=== PATIENT | female | born 1945 | race Two or more races ===

== ENCOUNTER → 2023-11-19 | Outpatient (CLI) | payer MEDICAID ==
[2023-11-19 11:44] LABS: Basophils # (auto) 0 10 ^3/uL (0-0.2); Basophils % (auto) 0.6 % (0.0-2.0); Eosinophils # (auto) 0.1 10 ^3/uL (0-0.8); Eosinophils % (auto) 1.4 % (0.0-7.0); Hemoglobin 11.9 g/dL (12.2-16.2); Lymphocytes # (auto) 2.4 10 ^3/uL (0.4-5.4); Lymphocytes % (auto) 31.6 % (10.0-50.0); Mean Corpuscular Hemoglobin 28.5 pg (28.0-32.0); Mean Corpuscular Hgb Conc. 33.1 g/dL (32.0-36.0); Mean Corpuscular Volume 86.2 fL (80.0-100.0); Monocytes # (auto) 0.4 10 ^3/uL (0-1.3); Monocytes % (auto) 5.8 % (0.0-12.0); Neutrophils # (auto) 4.6 10 ^3/uL (1.6-8.6); Neutrophils % (auto) 60.6 % (37.0-80.0); Red Blood Cells 4.17 10^6/uL (4.0-5.20); Red Cell Distribution Width 14.4 % (11.8-14.3); White Blood Cell 7.6 10^3/uL (4.4-10.8)
[2023-11-19 11:46] LABS: Urine Blood 1+ /uL (Negative); Urine Clarity Turbid (Clear); Urine Protein, UAD TRACE (Negative); Urine Specific Gravity 1.012 (1.001-1.035); Urine Urobilinogen Normal (Negative); Urine pH 5.5 (5.0-9.0)
[2023-11-19 11:51] LABS: Urine Color Straw (Yellow)
[2023-11-19 11:54] LABS: Alanine Aminotransferase 18 U/L (7-40); Albumin 4.6 g/dL (3.2-4.8); Alkaline Phosphatase 121 U/L (46-116); Anion Gap 4 (5-15); Aspartate Aminotransferase 11 U/L (13-40); BUN/Creatinine Ratio 17.3 (10.0-20.0); Blood Urea Nitrogen 22 mg/dL (9-23); Calcium 10.2 mg/dL (8.5-10.1); Carbon Dioxide 25 mmol/L (20-30); Chloride 111 mmol/L (98-107); Cholesterol 122 mg/dL (< 200); Glucose 107 mg/dL (74-106); HDL Cholesterol 47 mg/dL (40-59); LDL Cholesterol 56 mg/dL (< 100); Potassium 4.8 mmol/L (3.5-5.1); Sodium 140 mmol/L (136-145); Triglycerides 121 mg/dL (< 150)
[2023-11-19 11:55] LABS: Bilirubin, Total 0.4 mg/dL (0.2-1.0); Total Protein 7.6 g/dL (5.7-8.2)
[2023-11-19 11:57] LABS: Creatinine, Urine 55.26 mg/dL (30.0-125.0)
== END | disposition home or self-care (01) ==
LOC: LAB 10:44
PROVIDERS: ATTEND Student in an Organized Health Care Education/Training Program
DX: I10 Essential (primary) hypertension (principal); E11.9 Type 2 diabetes mellitus without complications; E55.9 Vitamin D deficiency, unspecified
CPT/HCPCS: 36415; 80053; 80061; 81003; 82043; 82306; 82570; 83036; 84443; 85025

== ENCOUNTER → 2023-11-25 | Outpatient (CLI) | payer MEDICAID ==
[2023-11-25 11:10] LABS: Alanine Aminotransferase 21 U/L (7-40); Alkaline Phosphatase 113 U/L (46-116); Anion Gap 8 (5-15); BUN/Creatinine Ratio 17.6 (10.0-20.0); Blood Urea Nitrogen 22 mg/dL (9-23); Calcium 9.8 mg/dL (8.5-10.1); Carbon Dioxide 23 mmol/L (20-30); Chloride 110 mmol/L (98-107); Glucose 108 mg/dL (74-106); Sodium 141 mmol/L (136-145)
[2023-11-25 11:11] LABS: Albumin 4.7 g/dL (3.2-4.8); Aspartate Aminotransferase 12 U/L (13-40); Bilirubin, Total 0.5 mg/dL (0.2-1.0); Total Protein 7.7 g/dL (5.7-8.2)
== END | disposition home or self-care (01) ==
LOC: LAB 09:50
PROVIDERS: ATTEND Internal Medicine
DX: I10 Essential (primary) hypertension (principal); I48.0 Paroxysmal atrial fibrillation
CPT/HCPCS: 36415; 80053

== ENCOUNTER → 2024-05-19 | Outpatient (CLI) | payer MEDICAID ==
[2024-05-19 09:52] LABS: Basophils # (auto) 0.1 10 ^3/uL (0-0.2); Basophils % (auto) 0.7 % (0.0-2.0); Eosinophils # (auto) 0.1 10 ^3/uL (0-0.8); Eosinophils % (auto) 1.6 % (0.0-7.0); Hematocrit 36.5 % (36.0-46.0); Hemoglobin 12.1 g/dL (12.2-16.2); Lymphocytes # (auto) 2.5 10 ^3/uL (0.4-5.4); Lymphocytes % (auto) 28.4 % (10.0-50.0); Mean Corpuscular Hemoglobin 29.4 pg (28.0-32.0); Mean Corpuscular Hgb Conc. 33.3 g/dL (32.0-36.0); Mean Corpuscular Volume 88.3 fL (80.0-100.0); Monocytes # (auto) 0.5 10 ^3/uL (0-1.3); Monocytes % (auto) 5.8 % (0.0-12.0); Neutrophils # (auto) 5.5 10 ^3/uL (1.6-8.6); Neutrophils % (auto) 63.5 % (37.0-80.0); Platelet Count (auto) 254 10^3/uL (140-450); Red Blood Cells 4.13 10^6/uL (4.0-5.20); Red Cell Distribution Width 13.7 % (11.8-14.3); White Blood Cell 8.6 10^3/uL (4.4-10.8)
[2024-05-19 10:08] LABS: Alanine Aminotransferase 19 U/L (7-40); Albumin 4.2 g/dL (3.2-4.8); Anion Gap 9 (5-15); BUN/Creatinine Ratio 19.9 (10.0-20.0); Carbon Dioxide 23 mmol/L (20-31); Magnesium 1.8 mg/dL (1.6-2.6); Sodium 142 mmol/L (136-145)
[2024-05-19 10:09] LABS: Bilirubin, Total 0.4 mg/dL (0.2-1.0); Total Protein 7.2 g/dL (5.7-8.2)
[2024-05-19 10:21] LABS: Alkaline Phosphatase 121 U/L (46-116); Aspartate Aminotransferase 11 U/L (13-40); Blood Urea Nitrogen 36 mg/dL (9-23); Chloride 110 mmol/L (98-107); Glucose 175 mg/dL (74-106); Potassium 5.4 mmol/L (3.5-5.1)
[2024-05-19 10:22] LABS: Creatinine, Urine 96.66 mg/dL (30.0-125.0); Urine Protein/Creatinine Ratio 0.27
== END | disposition home or self-care (01) ==
LOC: LAB 09:23
PROVIDERS: ATTEND Internal Medicine Nephrology
DX: E11.22 Type 2 diabetes mellitus with diabetic chronic kidney disease (principal); N18.30 Chronic kidney disease, stage 3 unspecified; E11.21 Type 2 diabetes mellitus with diabetic nephropathy; N39.0 Urinary tract infection, site not specified; R80.9 Proteinuria, unspecified; E21.3 Hyperparathyroidism, unspecified; M10.9 Gout, unspecified; E55.9 Vitamin D deficiency, unspecified
CPT/HCPCS: 36415; 80053; 82570; 83735; 83970; 84156; 85025

== ENCOUNTER → 2024-06-25 | Outpatient (CLI) | payer MEDICAID ==
[~2024-06-25] VITALS: Ht 160 cm; Wt 72.6 kg
[2024-06-25] MEDS: REGADENOSON 0.4 MG/5 ML SYRG IV ONE ×2 (09:21→09:27)
--- NOTE | 2024-06-25 11:40 | DVHSR ---
APPROVED REPORT Exam: Nuclear Stress Test BMI: 0 Stress Test Details HR Max Heart Rate (APMHR): 141.567758 bpm Target HR (85% APMHR): 119.666037 bpm BP ECG Stress ECG Conclusion Review of the myocardial perfusion images during stress demonstrated homogeneous radiotracer uptake t hroughout the left ventricular myocardium. Left ventricular volumes are normal. Left ventricular sy stolic function is normal and is estimated at 64%. There is no significant transient ischemic dilata tion. No gated images are available to assess for wall motion. Impressions 1. Low risk myocardial perfusion scan with no evidence of ischemia or prior infarction. 2. Normal left ventricular systolic function. NM EXAM: Myocardial Perfusion REST/STRESS Imaging Protocol: Rest Tc-99m/Stress Tc-99m 1 day Resting Data Rest SPECT myocardial perfusion imaging was performed in supine position 60 minutes following the int ravenous injection of 14.3 mCi of Tc-99m Sestamibi. Time of rest injection: 0747 Time of rest imagin Administration Route: IV Administration Site: Right AC Pharmacologic Stress Pharmacologic stress test was performed by injecting Regadenoson 0.4 mg IV push followed by the intra venous injection of 31.8 mCi of Tc-99m Sestamibi. Time of stress injection: 0922 Time of stress imagin Administration Route: IV Administration Site: Right AC Gated Stress SPECT was performed 60 minutes after stress injection. The images were gated to evaluate regional wall motion and calculate left ventricular ejection fracti on. Stress only was performed in the Supine position. Nuclear Conclusion ECG Findings: equivocal Clinical Findings: negative for ischemia Nuclear Findings: negative for ischemia Exercise Capacity: not assessed Left Ventricular Function: normal Risk Study: low Review of the myocardial perfusion images during stress demonstrated homogeneous radiotracer uptake t hroughout the left ventricular myocardium. Left ventricular volumes are normal. Left ventricular sy stolic function is normal and is estimated at 64%. There is no significant transient ischemic dilata tion. No gated images are available to assess for wall motion. Impressions 1. Low risk myocardial perfusion scan with no evidence of ischemia or prior infarction. 2. Normal left ventricular systolic function.
== END | disposition home or self-care (01) ==
LOC: XYW 07:26
PROVIDERS: ATTEND Internal Medicine
DX: R00.2 Palpitations (principal); I25.10 Atherosclerotic heart disease of native coronary artery without angina pectoris; R06.02 Shortness of breath; I48.19 Other persistent atrial fibrillation; I10 Essential (primary) hypertension; Z95.0 Presence of cardiac pacemaker; Z79.899 Other long term (current) drug therapy
CPT/HCPCS: 78452; 93017; A9500; J2785

== ENCOUNTER → 2024-07-20 | Outpatient (CLI) | payer MEDICAID ==
[2024-07-20 10:52] LABS: Basophils # (auto) 0 10 ^3/uL (0-0.2); Basophils % (auto) 0.5 % (0.0-2.0); Eosinophils # (auto) 0.1 10 ^3/uL (0-0.8); Eosinophils % (auto) 1.1 % (0.0-7.0); Hematocrit 38.7 % (36.0-46.0); Hemoglobin 12.5 g/dL (12.2-16.2); Lymphocytes # (auto) 2.2 10 ^3/uL (0.4-5.4); Mean Corpuscular Hemoglobin 28.5 pg (28.0-32.0); Mean Corpuscular Hgb Conc. 32.2 g/dL (32.0-36.0); Mean Corpuscular Volume 88.4 fL (80.0-100.0); Monocytes # (auto) 0.5 10 ^3/uL (0-1.3); Neutrophils # (auto) 5.4 10 ^3/uL (1.6-8.6); Neutrophils % (auto) 65.4 % (37.0-80.0); Nucleated Red Blood Cells % 0.3 %; Platelet Count (auto) 250 10^3/uL (140-450); Red Blood Cells 4.37 10^6/uL (4.0-5.20); Red Cell Distribution Width 15.2 % (11.8-14.3); White Blood Cell 8.3 10^3/uL (4.4-10.8)
[2024-07-20 12:34] LABS: Alanine Aminotransferase 27 U/L (7-40); Alkaline Phosphatase 103 U/L (46-116); Anion Gap 11 (5-15); BUN/Creatinine Ratio 19.2 (10.0-20.0); Carbon Dioxide 21 mmol/L (20-31); Magnesium 2.1 mg/dL (1.6-2.6); Sodium 142 mmol/L (136-145); Uric Acid 6.8 mg/dL (3.1-7.8)
[2024-07-20 12:36] LABS: Aspartate Aminotransferase 17 U/L (13-40); Bilirubin, Total 0.5 mg/dL (0.2-1.0); Phosphorus 4.3 mg/dL (2.4-5.1); Total Protein 7.5 g/dL (5.7-8.2)
[2024-07-20 15:18] LABS: Albumin 4.8 g/dL (3.2-4.8); Blood Urea Nitrogen 38 mg/dL (9-23); Calcium 10.5 mg/dL (8.7-10.4); Chloride 110 mmol/L (98-107); Glucose 137 mg/dL (74-106)
[2024-07-20 15:47] LABS: Potassium 5.7 mmol/L (3.5-5.1)
[2024-07-21 15:32] LABS: HDL Cholesterol 53 mg/dL (40-59)
[2024-07-21 15:38] LABS: Cholesterol 134 mg/dL (< 200); LDL Cholesterol 61 mg/dL (< 100); Triglycerides 135 mg/dL (< 150)
== END | disposition home or self-care (01) ==
LOC: LAB 09:06
PROVIDERS: ATTEND Student in an Organized Health Care Education/Training Program
DX: I12.9 Hypertensive chronic kidney disease with stage 1 through stage 4 chronic kidney disease, or unspecified chronic kidney disease (principal); E11.22 Type 2 diabetes mellitus with diabetic chronic kidney disease; N18.30 Chronic kidney disease, stage 3 unspecified; E11.21 Type 2 diabetes mellitus with diabetic nephropathy; N39.0 Urinary tract infection, site not specified; R80.9 Proteinuria, unspecified; E21.3 Hyperparathyroidism, unspecified; M10.9 Gout, unspecified; E55.9 Vitamin D deficiency, unspecified; D63.1 Anemia in chronic kidney disease
CPT/HCPCS: 36415; 80053; 80061; 83036; 83735; 83970; 84100; 84443; 84550; 85025

== ENCOUNTER 2024-11-02 11:02 | Outpatient (CLI) | payer MEDICAID ==
[2024-11-02 11:39] LABS: Basophils # (auto) 0 10 ^3/uL (0-0.2); Basophils % (auto) 0.6 % (0.0-2.0); Eosinophils # (auto) 0.1 10 ^3/uL (0-0.8); Hematocrit 35.3 % (36.0-46.0); Hemoglobin 11.8 g/dL (12.2-16.2); Lymphocytes % (auto) 26.4 % (10.0-50.0); Mean Corpuscular Hemoglobin 29.7 pg (28.0-32.0); Mean Corpuscular Hgb Conc. 33.3 g/dL (32.0-36.0); Mean Corpuscular Volume 89.1 fL (80.0-100.0); Monocytes # (auto) 0.5 10 ^3/uL (0-1.3); Monocytes % (auto) 6.2 % (0.0-12.0); Neutrophils # (auto) 4.9 10 ^3/uL (1.6-8.6); Neutrophils % (auto) 65.8 % (37.0-80.0); Platelet Count (auto) 249 10^3/uL (140-450); Red Blood Cells 3.96 10^6/uL (4.0-5.20); Red Cell Distribution Width 14.6 % (11.8-14.3); White Blood Cell 7.4 10^3/uL (4.4-10.8)
[2024-11-02 11:45] LABS: Urine Bacteria FEW /hpf (None Seen); Urine Blood Negative /uL (Negative); Urine Clarity Turbid (Clear); Urine Color Yellow (Yellow); Urine Hyaline Cast FEW /lpf (0 - 2); Urine Protein, UAD TRACE (Negative); Urine Specific Gravity 1.019 (1.001-1.035); Urine Squamous Epithelial Cell MOD /hpf (<5); Urine Urobilinogen Normal (Negative); Urine WBC 8 /HPF (0-5); Urine pH 5.5 (5.0-9.0)
[2024-11-02 11:56] LABS: Calcium 9.6 mg/dL (8.7-10.4)
[2024-11-02 12:00] LABS: Protein, Urine 25.3 mg/dL (1-14); Uric Acid 8.3 mg/dL (3.1-7.8)
[2024-11-02 12:01] LABS: BUN/Creatinine Ratio 16.8 (10.0-20.0)
[2024-11-02 12:02] LABS: Creatinine, Urine 205.86 mg/dL (30.0-125.0); Urine Protein/Creatinine Ratio 0.12
[2024-11-02 12:03] LABS: Albumin 4.7 g/dL (3.2-4.8); Phosphorus 3.8 mg/dL (2.4-5.1)
[2024-11-02 12:20] LABS: Potassium 5.9 mmol/L (3.5-5.1)
== END 2024-11-02 17:00 | disposition home or self-care (01) ==
LOC: LAB 11:02
PROVIDERS: ATTEND Internal Medicine
DX: E11.22 Type 2 diabetes mellitus with diabetic chronic kidney disease (principal); E11.21 Type 2 diabetes mellitus with diabetic nephropathy; N18.30 Chronic kidney disease, stage 3 unspecified; D63.1 Anemia in chronic kidney disease; N39.0 Urinary tract infection, site not specified; R80.9 Proteinuria, unspecified; E21.3 Hyperparathyroidism, unspecified; M10.9 Gout, unspecified; E55.9 Vitamin D deficiency, unspecified
CPT/HCPCS: 36415; 80069; 81001; 82043; 82570; 83970; 84156; 84550; 85025

== ENCOUNTER 2024-12-15 08:12 | Outpatient (CLI) | payer MEDICAID ==
[2024-12-15 08:29] LABS: Hematocrit 37.5 % (36.0-46.0); Hemoglobin 12.3 g/dL (12.2-16.2); Mean Corpuscular Hemoglobin 29.0 pg (28.0-32.0); Mean Corpuscular Volume 88.6 fL (80.0-100.0); Nucleated Red Blood Cells % 0.1 %
[2024-12-15 08:39] LABS: Urine Protein, UAD Negative (Negative)
[2024-12-15 08:59] LABS: Alanine Aminotransferase 31 U/L (7-40); Alkaline Phosphatase 101 U/L (46-116); Anion Gap 10 (5-15); Carbon Dioxide 26 mmol/L (20-31); Potassium 5.0 mmol/L (3.5-5.1); Sodium 144 mmol/L (136-145)
[2024-12-15 09:00] LABS: BUN/Creatinine Ratio 17.7 (10.0-20.0); Glucose 92 mg/dL (74-106); Total Protein 7.8 g/dL (5.7-8.2)
[2024-12-15 09:02] LABS: Bilirubin, Total 0.4 mg/dL (0.2-1.0)
[2024-12-15 09:03] LABS: Albumin 4.8 g/dL (3.2-4.8); Blood Urea Nitrogen 51 mg/dL (9-23); Calcium 10.6 mg/dL (8.7-10.4); Chloride 108 mmol/L (98-107)
[2024-12-15 09:13] LABS: Microalb/Creat Ratio, Urine 17.0
== END 2024-12-15 17:00 | disposition home or self-care (01) ==
LOC: LAB 08:12
PROVIDERS: ATTEND Student in an Organized Health Care Education/Training Program
DX: I10 Essential (primary) hypertension (principal); E11.9 Type 2 diabetes mellitus without complications; R79.89 Other specified abnormal findings of blood chemistry
CPT/HCPCS: 36415; 80053; 81001; 82043; 82570; 83036; 84439; 84443; 85025

== ENCOUNTER 2025-02-04 13:47 | Outpatient (CLI) | payer MEDICAID ==
[2025-02-04 16:04] LABS: Microalb/Creat Ratio, Urine 12.0
[2025-02-04 16:55] LABS: Albumin 4.3 g/dL (3.2-4.8); Alkaline Phosphatase 115 U/L (46-116); Anion Gap 10 (5-15); BUN/Creatinine Ratio 12.9 (10.0-20.0); Calcium 9.3 mg/dL (8.7-10.4); Carbon Dioxide 22 mmol/L (20-31); Chloride 106 mmol/L (98-107); Sodium 138 mmol/L (136-145); Total Protein 7.5 g/dL (5.7-8.2)
[2025-02-04 16:57] LABS: Alanine Aminotransferase 47 U/L (7-40); Bilirubin, Total 0.2 mg/dL (0.2-1.0); Blood Urea Nitrogen 31 mg/dL (9-23); Glucose 179 mg/dL (74-106)
[2025-02-04 17:02] LABS: Potassium 5.7 mmol/L (3.5-5.1)
[2025-02-04 17:14] LABS: Uric Acid 7.4 mg/dL (3.1-7.8)
== END 2025-02-04 17:00 | disposition home or self-care (01) ==
LOC: LAB 13:47
PROVIDERS: ATTEND Internal Medicine Nephrology
DX: E11.22 Type 2 diabetes mellitus with diabetic chronic kidney disease (principal); N18.30 Chronic kidney disease, stage 3 unspecified; N39.0 Urinary tract infection, site not specified; R80.9 Proteinuria, unspecified; E21.3 Hyperparathyroidism, unspecified; M10.9 Gout, unspecified; E55.9 Vitamin D deficiency, unspecified; D63.1 Anemia in chronic kidney disease
CPT/HCPCS: 36415; 80053; 82043; 82570; 83036; 83970; 84100; 84550

== ENCOUNTER → 2025-04-13 | Outpatient (CLI) | payer MEDICAID ==
[2025-04-13 11:29] LABS: Alanine Aminotransferase 92 U/L (7-40); Albumin 4.6 g/dL (3.2-4.8); Alkaline Phosphatase 116 U/L (46-116); Anion Gap 15 (5-15); BUN/Creatinine Ratio 9.9 (10.0-20.0); Bilirubin, Total 0.3 mg/dL (0.2-1.0); Blood Urea Nitrogen 36 mg/dL (9-23); Calcium 9.8 mg/dL (8.7-10.4); Carbon Dioxide 23 mmol/L (20-31); Chloride 100 mmol/L (98-107); Glucose 207 mg/dL (74-106); Sodium 138 mmol/L (136-145); Total Protein 7.9 g/dL (5.7-8.2); Uric Acid 9.8 mg/dL (3.1-7.8)
[2025-04-13 11:36] LABS: Potassium 5.7 mmol/L (3.5-5.1)
[2025-04-13 16:41] LABS: Microalb/Creat Ratio, Urine 56.0
== END | disposition home or self-care (01) ==
LOC: LAB 10:15
PROVIDERS: ATTEND Internal Medicine Nephrology
DX: E11.22 Type 2 diabetes mellitus with diabetic chronic kidney disease (principal); N18.30 Chronic kidney disease, stage 3 unspecified; E11.21 Type 2 diabetes mellitus with diabetic nephropathy; E55.9 Vitamin D deficiency, unspecified; E21.3 Hyperparathyroidism, unspecified; D63.1 Anemia in chronic kidney disease; N39.0 Urinary tract infection, site not specified; M10.9 Gout, unspecified; R80.9 Proteinuria, unspecified
CPT/HCPCS: 36415; 80053; 82043; 82570; 83036; 83970; 84100; 84550